=== PATIENT | male | born 1980 | race Caucasian/White ===

== ENCOUNTER → 2016-06-24 | Outpatient (CLI) | payer BC | LOC: M LAB 07:26 | PROVIDERS: ATTEND Family Medicine | DX: R53.83 Other fatigue (principal); F52.21 Male erectile disorder ==

== ENCOUNTER → 2017-02-03 | Outpatient (CLI) | payer BC ==
[2017-02-03 15:00] LABS: ALBUMIN 4.6 GM/DL (3.2-5.2); ALBUMIN/GLOBULIN RATIO 1.31 (1.00-1.93); ALKALINE PHOSPHATASE 72 U/L (45-117); ALT/SGPT 71 U/L (12-78); ANION GAP 9 MEQ/L (8-16); AST/SGOT 33 U/L (7-37); BILIRUBIN,TOTAL 0.6 MG/DL (0.2-1.0); BLOOD UREA NITROGEN 16 MG/DL (7-18); CALCIUM LEVEL 9.7 MG/DL (8.5-10.1); CARBON DIOXIDE LEVEL 29 MEQ/L (21-32); CHLORIDE LEVEL 101 MEQ/L (98-107); CHOLESTEROL LEVEL 427 MG/DL (<200); CREATININE FOR GFR 1.01 MG/DL (0.70-1.30); FREE T4 1.23 NG/DL (0.76-1.46); GLOMERULAR FILTRATION RATE > 60.0 (>60); GLUCOSE, FASTING 89 MG/DL (70-105); POTASSIUM SERUM 4.7 MEQ/L (3.5-5.1); SODIUM LEVEL 139 MEQ/L (136-145); TOTAL PROTEIN 8.1 GM/DL (6.4-8.2); TRIGLYCERIDES LEVEL 149 MG/DL (<150)
== END ==
LOC: M SMT 10:54
PROVIDERS: ATTEND Family Medicine
DX: E78.00 Pure hypercholesterolemia, unspecified (principal); E29.1 Testicular hypofunction

== ENCOUNTER → 2017-09-03 | Outpatient (CLI) | payer BC ==
[2017-09-03 10:05] LABS: CHOLESTEROL LEVEL 292 MG/DL (<200); CHOLESTEROL RISK RATIO 24.333 (<5); HDL CHOLESTEROL 12 MG/DL (>40); LDL CHOLESTEROL 249.8 MG/DL (<100); NON-HDL-C 280 MG/DL; TRIGLYCERIDES LEVEL 151 MG/DL (<150)
== END ==
LOC: M LAB 09:08
DX: E78.00 Pure hypercholesterolemia, unspecified (principal)
CPT/HCPCS: 80061

== ENCOUNTER → 2018-02-19 | Outpatient (CLI) | payer BC ==
[~2018-02-19] MED LIST: ALPR0.5T3 PO; DULO1CAP3 PO; ESZO1TAB5 PO; HYDRO50TAB PO; IMIP25TA3 PO; ROPI0.5T PO; ROSU40TA3 PO; TRAZO50TA PO; oxycodone PO
--- NOTE | 2018-02-19 16:02 | REP ---
Maxillofacial CT without contrast History: Chronic pansinusitis Comparison: 01/11/2018 Soft tissue density is present in the right maxillary sinus. There is a complete opacification of the right maxillary sinus. There is partial erosion of the right uncinate process. There is extension of soft tissue density to the right nasal passage. Moderate mucosal thickening is present in the right ethmoid and frontal sinuses. The remaining sinuses are clear. The middle and inferior nasal turbinates are partially paradoxical. There is minimal deviation of the nasal septum to the left. A spur is present arising from the left side of the nasal septum. The spur abuts the left inferior nasal turbinate. The cribriform plate , medial botello of the orbits and optic canals are intact. The carotid canals form a segment of the posterolateral botello of the sphenoid sinus. The sphenoid sinus septum inserts into the right internal carotid canal wall. Impression: There is complete opacification of the right maxillary sinus with partial erosion of the right uncinate process and extension into the right nasal passage. Moderate mucosal thickening is present in the right ethmoid and frontal sinuses. This may represent mucosal thickening or possibly an antrochoanal polyp. Electronically Signed by Harvey Mc MD 02/19/2018 03:54 P
== END ==
LOC: M RAD 15:17
PROVIDERS: ATTEND Otolaryngology
DX: J32.4 Chronic pansinusitis (principal)

== ENCOUNTER 2018-03-05 11:53 | Inpatient (IN) | payer BC ==
[~2018-03-05] VITALS: Ht 175.3 cm; Wt 78.2 kg
[2018-03-05 12:53] LABS: HEMATOCRIT 47.8 % (42.0-52.0); HEMOGLOBIN 16.8 g/dl (13.5-17.5); MEAN CORPUSCULAR HEMOGLOBIN 30.5 pg (27.0-33.0); MEAN CORPUSCULAR HGB CONC 35.1 g/dl (32.0-36.5); MEAN CORPUSCULAR VOLUME 86.8 fl (80.0-96.0); PLATELET COUNT, AUTOMATED 246 10^3/uL (150-450); RED BLOOD COUNT 5.51 10^6/uL (4.30-6.10); WHITE BLOOD COUNT 6.5 10^3/uL (4.0-10.0)
[2018-03-05] MEDS ORDERED: DULO1CAP3 PO (13:14)
[2018-03-05] MEDS ORDERED: ALPR0.5T3 PO (13:14)
[2018-03-05] MEDS ORDERED: oxycodone PO (13:14)
[2018-03-05] MEDS ORDERED: ROPI0.5T PO (13:14)
[2018-03-05] MEDS ORDERED: ROSU40TA3 PO (13:14)
[2018-03-05] MEDS ORDERED: ESZO1TAB5 PO (13:14)
[2018-03-05 13:23] LABS: AMPHETAMINES LEVEL URINE NEGATIVE (NEGATIVE); BARBITURATES URINE NEGATIVE (NEGATIVE); BENZODIAZEPINES URINE POSITIVE (NEGATIVE); CANNABINOIDS URINE NEGATIVE (NEGATIVE); COCAINE METABOLITE URINE NEGATIVE (NEGATIVE); METHADONE URINE NEGATIVE (NEGATIVE); OPIATES URINE NEGATIVE (NEGATIVE); PHENCYCLIDINE URINE NEGATIVE (NEGATIVE)
[2018-03-05 13:39] LABS: ACETAMINOPHEN LEVEL < 2.0 UG/ML (10.0-30.0); ALBUMIN 4.5 GM/DL (3.2-5.2); ALT/SGPT 31 U/L (12-78); BILIRUBIN,DIRECT 0.2 MG/DL (0.0-0.2); BILIRUBIN,TOTAL 0.7 MG/DL (0.2-1.0); BLOOD UREA NITROGEN 11 MG/DL (7-18); CALCIUM LEVEL 9.7 MG/DL (8.5-10.1); CARBON DIOXIDE LEVEL 26 MEQ/L (21-32); CHLORIDE LEVEL 104 MEQ/L (98-107); CREATININE FOR GFR 0.95 MG/DL (0.70-1.30); ETHYL ALCOHOL (ETHANOL) < 0.003 % (0.000-0.010); GLOMERULAR FILTRATION RATE > 60.0 (>60); GLUCOSE, FASTING 89 MG/DL (70-100); POTASSIUM SERUM 4.4 MEQ/L (3.5-5.1); SALICYLATE LEVEL < 1.7 MG/DL (5.0-30.0); SODIUM LEVEL 140 MEQ/L (136-145); THYROID STIMULATING HORMONE 0.427 uIU/ML (0.358-3.740); TOTAL PROTEIN 8.6 GM/DL (6.4-8.2)
[2018-03-05] MEDS ORDERED: ACETAMINOPHEN TAB 650MG DOSE (2X325MG) PO PRN (19:00)
[2018-03-05] MEDS ORDERED: MOM 30ML SUSPENSION UDC PO PRN (19:00)
[2018-03-05] MEDS ORDERED: MAALOX 30 ML SUSP *UDC PO PRN (19:00)
[2018-03-05 23:03] VITALS: BP 141/82
[2018-03-05] MEDS: ROSUVASTATIN 10 MG TAB (CRESTOR) PO SCH (23:55)
[2018-03-05] MEDS: rOPINIRole 0.25 MG TAB(REQUIP) PO SCH (23:56)
[2018-03-05] MEDS: traZODone 50 MG TAB PO PRN (23:57)
[2018-03-06 06:43] VITALS: BP 149/77
[2018-03-06] MEDS: DULoxetine 30 MG CAP (CYMBALTA) PO SCH (09:01)
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
[2018-03-06] MEDS: hydrOXYzine 25 MG TAB PO PRN (17:40)
[2018-03-06 18:00] VITALS: BP 131/77
[2018-03-06] MEDS: ROSUVASTATIN 10 MG TAB (CRESTOR) PO SCH (20:18)
[2018-03-06] MEDS: rOPINIRole 0.25 MG TAB(REQUIP) PO SCH (20:18)
[2018-03-06] MEDS ORDERED: IMIPRAMINE 25 MG TAB PO SCH (21:00)
[2018-03-06] MEDS: traZODone 50 MG TAB PO PRN (22:00)
[2018-03-07 06:44] VITALS: BP 130/61
[2018-03-07] MEDS: hydrOXYzine 25 MG TAB PO PRN (08:27)
[2018-03-07] MEDS: DULoxetine 30 MG CAP (CYMBALTA) PO SCH (08:28)
--- NOTE | 2018-03-07 10:34 | HPE ---
DATE OF ADMISSION: 03/05/2018 HISTORY OF THE PRESENT ILLNESS: Please refer to psychiatric history and evaluation for further details on this admission. This examination and history is intended for medical issues which may need treatment, follow-up or consult on this 37-year-old male. ALLERGIES: No known drug allergies. PRIMARY CARE PROVIDER: Dr. Begum SOCIAL HISTORY: He is . EtOH once a month. Smokes none. Recreational drug use none. PAST MEDICAL HISTORY: Hypercholesterolemia. Pansinusitis, is being scheduled for sinus surgery to be done by ENT, Dr. Morley. PAST SURGICAL HISTORY: Negative. HOME MEDICATIONS: - alprazolam 0.5 mg by mouth daily - eszopiclone 2 mg by mouth at bedtime - duloxetine 60 mg by mouth daily - ropinirole 0.5 mg by mouth at bedtime - rosuvastatin 40 mg by mouth at bedtime FAMILY HISTORY: Noncontributory. LABORATORY STUDIES: CBC was normal. Electrolytes normal. BUN 11, creatinine 0.95. Urine positive for benzodiazepines. REVIEW OF SYSTEMS: 11 systems review was unremarkable other than the pansinusitis and he is scheduled for surgery for this. Currently on no medications for it. PHYSICAL EXAMINATION: 37-year-old cooperative male in no acute distress. Height 69 inches, weight 76 kg, BMI 24.7. Temperature 98.2, pulse 66, respirations 16, blood pressure 131/77. The patient is alert and oriented times three. Pupils equal and react to light. Extraocular muscles intact. Cornea and sclerae are clear. Conjunctivae are normal. No facial asymmetry. Pharynx, tongue and gums are pink and moist. Tongue is midline. Neck is supple without lymphadenopathy. No thyromegaly. No goiter. Carotids are 2+ without bruit. Chest clear to auscultation without wheeze or retraction. Heart is regular. Abdomen is benign. Bowel sounds are positive. /rectal not done. Extremities show full range of motion. No cyanosis, clubbing or edema. Peripheral pulses are equal and palpable bilaterally. Skin is warm and dry. IMPRESSION/PLAN: 1. Psychiatric plan per psychiatry. 2. History of hypercholesterolemia. Continue rosuvastatin. 3. Pansinusitis. Continued follow-up and as scheduled for surgery with Dr. Morley. No other acute medical issues.
--- NOTE | 2018-03-07 11:07 | MHIPNPDOC ---
[facility] Progress Note Progress Note DATE OF SERVICE: 03/07/18 HISTORY: Patient is a 37 -year-old , male, with no previous psych history who was admitted after he was sent by his PCP, Dr. Fung, for complaints of depression and intrusive thoughts. Per ED, pt was not very forth coming at first with info. In ED, he endorsed "intrusive thoughts" of "visions hurting himself of his son", driving truck off the road and into a ditch or water or pushing his 16mo old son down stairs or smothering him with a pillow. Pt admitted that these thoughts caused him to feel depressed and anxious. Pt s tated that his PCP had prescribed him cymbalta in the past that he took for 2wks for depression but stopped taking on his own b/c he felt it didn't work. Pt in the ED admitted he had felt good during the holidays but after the holidays he started feeling worthless and depressed. Pt seen and endorses continuous worrisome thoughts that cause anxiety and insomnia. States he was doing good during the holidays and made a resolution to be a good and father which last for 2 days after New Years but states then he started feeling guilty for looking at women on line with webcams that now has made him feel worthless and guilty. Pt states that his guilt regarding how he had treated his caused him to have spontaneous intrusive thoughts of at first harming himself and then later others (son, best friend) that made him anxious, scared him, and denies he wants to harm himself or others. Pt denies ritual behavior or checking. Talking to pt about what SHREYAS and OCD are and that prozac or imipramine good med treatment for disorders well tolerated. Pt agrees to try imipramine for anxiety, OCD, and insomnia. Denies si/hi, hallucinations, delusions. Feels safe here. VITAL SIGNS: See below. NEW TEST RESULTS: See below. CURRENT MEDICATIONS: See below. MENTAL STATUS EXAMINATION: General Appearance: well groomed, appears stated age, hospital scubs/clothing Build: average Demeanor: average Eye Contact: average Activity: average, anxious Behavior: cooperative Speech: clear, spontaneous, normal volume, reg/rate,rhythm,volume Mood: depressed, anxious Mood worthless Affect: constricted, flat, congruent, anxious Thought Process: logical/linear, depressed, intact, other (intrusive thoughts) Thought Content (Delusions): none reported, denies SI, HI, AVH Thought Content (Other): none reported, preoccupied (sexual thoughts that he doesn't act on and make him feel guilt physically, cause anxiety if doesn't look at webcam/follow pretty girl in a store, ODC like ritual), obsessional, other (OCD intrusive thoughts) Thought Content (Aggressive): none reported Perception (Hallucinations): none reported Perception (Other): none reported Cognition (Impairment of): none reported Cognition(Intelligence Est.): average Oriented: Awake, Alert, Oriented times three Insight: fair Judgment: Fair Psychosis: Denies DIAGNOSES: SHREYAS OCD depression unspecified ASSESSMENT:Pt seen and endorses continuous intrusive thoughts of pushing his son down the stairs that causes anxiety b/c he doesn't want to do that and knows he wouldn't. Pt encouraged to combat intrusive thoughts with thoughts of loving his son and his son loving him, logical thoughts of knowing he would never do anything like that. States he's tolerating his medication and waiting to notices mood/anxiety response that's beneficial. Agreeable to increase of both for improved benefit. He's attending groups and finding them beneficial. Denies si/hi, hallucinations, delusions. Feels safe here. MANAGEMENT PLAN: continue current plan. Medications: imipramine 50mg qhs atarax 50mg q6hr prn anxiety TIME SPENT: 30 minutes. Vital Signs Vital Signs Date Time Temp Pulse Resp B/P (MAP) Pulse Ox O2 Delivery O2 Flow Rate FiO2 03/07/18 06:44 97.8 68 14 130/61 (84) 03/05/18 23:03 Room Air 03/05/18 16:37 96 Current Medications Current Medications Acetaminophen (Tylenol Tab) 650 mg Q6HP PRN PO HEADACHE or DISCOMFORT; Start 03/05/18 at 19:00 Al Hydrox/Mg Hydrox/Simethicone (Mylanta) 30 ml Q4HP PRN PO HEARTB URN/INDIGESTION; Start 03/05/18 at 19:00 Duloxetine HCl (Cymbalta) 60 mg DAILY PO Last administered on 03/06/18at 09:01; Start 03/06/18 at 09:00 Home Med (Med Rec Complete!) ASDIRECTED XX ; Start 03/05/18 at 19:45; Stop 03/05/18 at 19:45; Status DC Hydroxyzine HCl (Atarax) 25 mg Q6HP PRN PO ANXIETY Last administered on 03/07/18 08:27; Start 03/05/18 at 23:45 Imipramine HCl (Tofranil) 25 mg QHS PO Last administered on 03/06/18at 20:18; Start 03/06/18 at 21:00 Magnesium Hydroxide (Milk Of Magnesia) 30 ml DAILYPRN PRN PO CONSTIPATION; Start 03/05/18 at 19:00 Ropinirole HCl (Requip) 0.5 mg QHS PO Last administered on 03/06/18at 20:18; Start 03/05/18 at 21:00 Rosuvastatin Calcium (Crestor) 40 mg QHS PO Last administered on 03/06/18 20:18; Start 03/05/18 at 21:00 Trazodone HCl (Desyrel) 50 mg QHSP PRN PO INSOMNIA Last administered on 03/06/18 22:00; Start 03/05/18 at 19:00 Allergies Coded Allergies: No Known Drug Allergy (Verified Allergy, Unknown, 03/05/18) JENNY ROTHMAN DO Mar 07, 2018 11:07
[2018-03-07] MEDS: hydrOXYzine 50 MG TAB PO PRN (15:10)
[2018-03-07 18:00] VITALS: BP 139/65
[2018-03-07] MEDS: rOPINIRole 0.25 MG TAB(REQUIP) PO SCH (20:44)
[2018-03-07] MEDS: ROSUVASTATIN 10 MG TAB (CRESTOR) PO SCH (20:44)
[2018-03-07] MEDS: IMIPRAMINE 25 MG TAB PO SCH (20:44)
[2018-03-07] MEDS ORDERED: IMIPRAMINE 50 MG TAB PO SCH (21:00)
[2018-03-07] MEDS: traZODone 50 MG TAB PO PRN (21:51)
[2018-03-08 06:43] VITALS: BP 133/62
[2018-03-08 10:00] VITALS: BP 133/62
--- NOTE | 2018-03-08 11:50 | MHIPNPDOC ---
[facility] [place] Progress Note DATE OF SERVICE: 03/08/18 HISTORY: Patient is a 37 -year-old , male, with no previous psych history who was admitted after he was sent by his PCP, Dr. Fung, for complaints of depression and intrusive thoughts. Per ED, pt was not very forth coming at first with info. In ED, he endorsed "intrusive thoughts" of "visions hurting himself of his son", driving truck off the road and into a ditch or water or pushing his 16mo old son down stairs or smothering him with a pillow. Pt admitted that these thoughts caused him to feel depressed and anxious. Pt s tated that his PCP had prescribed him cymbalta in the past that he took for 2wks for depression but stopped taking on his own b/c he felt it didn't work. Pt in the ED admitted he had felt good during the holidays but after the holidays he started feeling worthless and depressed. Pt seen and endorses continuous worrisome thoughts that cause anxiety and insomnia. States he was doing good during the holidays and made a resolution to be a good and father which last for 2 days after New Years but states then he started feeling guilty for looking at women on line with webcams that now has made him feel worthless and guilty. Pt states that his guilt regarding how he had treated his caused him to have spontaneous intrusive thoughts of at first harming himself and then later others (son, best friend) that made him anxious, scared him, and denies he wants to harm himself or others. Pt denies ritual behavior or checking. Talking to pt about what SHREYAS and OCD are and that prozac or imipramine good med treatment for disorders well tolerated. Pt agrees to try imipramine for anxiety, OCD, and insomnia. Denies si/hi, hallucinations, delusions. Feels safe here. VITAL SIGNS: See below. NEW TEST RESULTS: See below. CURRENT MEDICATIONS: See below. MENTAL STATUS EXAMINATION: General Appearance: well groomed, appears stated age, own clothing Build: average Demeanor: average, cooperative, pleasant Eye Contact: average Activity: average, less anxious Behavior: cooperative Speech: clear, spontaneous, normal volume, reg/rate,rhythm,volume Mood: less depressed and anxious Mood "better" Affect: improved range, congruent, less anxious Thought Process: logical/linear, less depressed, intact, improved intrusive thoughts Thought Content (Delusions): none reported, denies SI, HI, AVH Thought Content (Other): none reported, improved intrusive thoughts and OCD urges Thought Content (Aggressive): none reported Perception (Hallucinations): none reported Perception (Other): none reported Cognition (Impairment of): none reported Cognition(Intelligence Est.): average Oriented: Awake, Alert, Oriented times three Insight: fair Judgment: Fair Psychosis: Denies DIAGNOSES: SHREYAS OCD depression unspecified ASSESSMENT:Pt seen and endorses great improvement in intrusive thoughts he feels they are more easy to stop so no longer causing extreme anxiety. States he's also using positive thought and deep breathing therapeutically to improve intrusive thoughts and anxiety which are both working. Pt more easily able to combat intrusive thoughts with thoughts of loving his son and his son loving him, logical thoughts of knowing he would never do anything like that. States he's tolerating his medication and feels the increase in imipramine is greatly beneficial as he finds that his anxiety is greatly improved to the point he hasn't needed any atarax since yesterday morning. He's attending groups and finding them beneficial. Denies si/hi, hallucinations, delusions. Depression, anxiety, OCD symptoms are improving with treatment. Feels safe here. MANAGEMENT PLAN: continue current plan. Medications: imipramine 50mg qhs atarax 50mg q6hr prn anxiety TIME SPENT: 30 minutes. Vital Signs Vital Signs Date Time Temp Pulse Resp B/P (MAP) Pulse Ox O2 Delivery O2 Flow Rate FiO2 03/08/18 06:43 97.7 67 16 133/62 (85) 03/05/18 23:03 Room Air 03/05/18 16:37 96 Current Medications Current Medications Acetaminophen (Tylenol Tab) 650 mg Q6HP PRN PO HEADACHE or DISCOMFORT; Start 03/05/18 at 19:00 Al Hydrox/Mg Hydrox/Simethicone (Mylanta) 30 ml Q4HP PRN PO HEARTBURN/REED GESTION; Start 03/05/18 at 19:00 Duloxetine HCl (Cymbalta) 60 mg DAILY PO Last administered on 03/06/18at 09:01; Start 03/06/18 at 09:00; Stop 03/07/18 at 21:13; Status DC Home Med (Med Rec Complete!) ASDIRECTED XX ; Start 03/05/18 at 19:45; Stop 03/05/18 at 19:45; Status DC Hydroxyzine HCl (Atarax) 25 mg Q6HP PRN PO ANXIETY Last administered on 03/07/18at 08:27; Start 03/05/18 at 23:45; Stop 03/07/18 at 11:08; Status DC Hydroxyzine HCl (Atarax) 50 mg Q6HP PRN PO ANXIETY/AGITATION Last administered on 03/07/18at 15:10; Start 03/07/18 at 11:15 Imipramine HCl (Tofranil) 25 mg QHS PO Last administered on 03/06/18at 20:18; Start 03/06/18 at 21:00; Stop 03/07/18 at 11:08; Status DC Imipramine HCl (Tofranil) 50 mg QHS PO ; Start 03/07/18 at 21:00; Stop 03/07/18 at 21:00; Status DC Imipramine HCl (Tofranil) 50 mg QHS PO Last administered on 03/07/18at 20:44; Start 03/07/18 at 21:00 Magnesium Hydroxide (Milk Of Magnesia) 30 ml DAILYPRN PRN PO CONSTIPATION; Start 03/05/18 at 19:00 Ropinirole HCl (Requip) 0.5 mg QHS PO Last administered on 03/07/18at 20:44; Start 03/05/18 at 21:00 Rosuvastatin Calcium (Crestor) 40 mg QHS PO Last administered on 03/07/18at 20: 44; Start 03/05/18 at 21:00 Trazodone HCl (Desyrel) 50 mg QHSP PRN PO INSOMNIA Last administered on 03/07/18 21:51; Start 03/05/18 at 19:00 Allergies Coded Allergies: No Known Drug Allergy (Verified Allergy, Unknown, 03/05/18) JENNY ROTHMAN DO Mar 08, 2018 11:50 am
[2018-03-08] MEDS: hydrOXYzine 50 MG TAB PO PRN (15:04)
[2018-03-08 18:00] VITALS: BP 130/80
[2018-03-08] MEDS: traZODone 50 MG TAB PO PRN (22:04)
[2018-03-08] MEDS: rOPINIRole 0.25 MG TAB(REQUIP) PO SCH (22:04)
[2018-03-08] MEDS: ROSUVASTATIN 10 MG TAB (CRESTOR) PO SCH (22:04)
[2018-03-08] MEDS: IMIPRAMINE 25 MG TAB PO SCH (22:05)
[2018-03-09 06:32] VITALS: BP 122/84
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
[2018-03-09] MEDS ORDERED: TRAZO50TA PO (09:06)
[2018-03-09] MEDS ORDERED: HYDRO50TAB PO (09:06)
[2018-03-09] MEDS ORDERED: IMIP25TA3 PO (09:06)
[2018-03-09] MEDS: hydrOXYzine 50 MG TAB PO PRN (09:30)
== END 2018-03-09 12:10 | disposition home or self-care (01) | DRG 756 ==
LOC: M ED 11:53 → M ED INP 18:46 → M PSY 22:21
PROVIDERS: ADMIT Psychiatry & Neurology Psychiatry; ATTEND Psychiatry & Neurology Psychiatry
DX: F41.1 Generalized anxiety disorder (principal); F32.9 Major depressive disorder, single episode, unspecified; F42.9 Obsessive-compulsive disorder, unspecified; Z79.899 Other long term (current) drug therapy; J32.9 Chronic sinusitis, unspecified

== ENCOUNTER 2018-04-14 20:30 | Day surgery (SDC) | payer BC ==
[~2018-04-14] VITALS: Ht 175.3 cm; Wt 77.3 kg
[2018-04-14] MEDS ORDERED: CLON0.5T8 (20:39)
[2018-04-14] MEDS ORDERED: LORazepam 2 MG/ML VIAL (J2060) IV STA ×2 (22:05→23:25)
[2018-04-14] MEDS ORDERED: LIDOCAINE 4% TOPICAL SOLN 50 ML BTL TOP ONE (22:15)
[2018-04-14] MEDS ORDERED: OXYMETAZOLINE NASAL SPRAY (AFRIN) ONE (22:15)
[2018-04-14 22:26] LABS: MEAN CORPUSCULAR HEMOGLOBIN 30.2 pg (27.0-33.0); MEAN CORPUSCULAR HGB CONC 34.9 g/dl (32.0-36.5); MEAN CORPUSCULAR VOLUME 86.7 fl (80.0-96.0); PLATELET COUNT, AUTOMATED 249 10^3/uL (150-450); RED BLOOD COUNT 4.96 10^6/uL (4.30-6.10); WHITE BLOOD COUNT 11.7 10^3/uL (4.0-10.0)
[2018-04-14] MEDS ORDERED: ONDANSETRON 4MG/2ML VIAL (J2405) As Ordered ONE (22:36)
[2018-04-14] MEDS ORDERED: ONDANSETRON 4MG/2ML VIAL (J2405) IV ONE (22:45)
[2018-04-14] MEDS ORDERED: NS 1,000 ML IV ONE (22:45)
[2018-04-15] MEDS ORDERED: IMIP25TA3 PO (00:06)
[2018-04-15] MEDS ORDERED: TRAZ-163 PO (00:06)
[2018-04-15] MEDS ORDERED: CLON0.5T8 PO (00:06)
[2018-04-15 01:22] LABS: HEMATOCRIT 36.4 % (42.0-52.0); MEAN CORPUSCULAR HEMOGLOBIN 30.2 pg (27.0-33.0); MEAN CORPUSCULAR HGB CONC 34.1 g/dl (32.0-36.5); MEAN CORPUSCULAR VOLUME 88.6 fl (80.0-96.0); PLATELET COUNT, AUTOMATED 233 10^3/uL (150-450); RED BLOOD COUNT 4.11 10^6/uL (4.30-6.10); WHITE BLOOD COUNT 11.6 10^3/uL (4.0-10.0)
[2018-04-15 01:25] LABS: HEMOGLOBIN 12.4 g/dl (13.5-17.5)
[2018-04-15 01:32] LABS: INR 1.12; PROTHROMBIN TIME 14.6 SECONDS (12.1-14.4)
[2018-04-15 01:52] LABS: ALBUMIN 3.3 GM/DL (3.2-5.2); ALT/SGPT 32 U/L (12-78); BILIRUBIN,TOTAL 0.2 MG/DL (0.2-1.0); BLOOD UREA NITROGEN 11 MG/DL (7-18); CALCIUM LEVEL 7.5 MG/DL (8.5-10.1); CARBON DIOXIDE LEVEL 24 MEQ/L (21-32); CHLORIDE LEVEL 108 MEQ/L (98-107); CREATININE FOR GFR 0.87 MG/DL (0.70-1.30); GLOMERULAR FILTRATION RATE > 60.0 (>60); GLUCOSE, FASTING 111 MG/DL (70-100); POTASSIUM SERUM 4.5 MEQ/L (3.5-5.1); SODIUM LEVEL 141 MEQ/L (136-145); TOTAL PROTEIN 6.3 GM/DL (6.4-8.2)
[2018-04-15] MEDS ORDERED: OXYMETAZOLINE NASAL SPRAY (AFRIN) As Ordered ONE ×3 (01:57→02:47)
[2018-04-15] MEDS ORDERED: LIDOCAINE 2% INJ 100 MG/5 ML SDV (FOR ANES.) As Ordered ONE (02:16)
[2018-04-15] MEDS ORDERED: SUCCINYLCHOLINE 100 MG/5 ML SYRINGE (J0330) As Ordered ONE (02:16)
[2018-04-15] MEDS ORDERED: ROCURONIUM BROMIDE 50 MG/5 ML VIAL As Ordered ONE (02:16)
[2018-04-15] MEDS ORDERED: fentaNYL 250 MCG/5 ML INJECTION (J3010) As Ordered ONE (02:16)
[2018-04-15] MEDS ORDERED: ONDANSETRON 4MG/2ML VIAL (J2405) As Ordered ONE (02:16)
[2018-04-15] MEDS ORDERED: PROPOFOL 200 MG/20 ML VIAL As Ordered ONE (02:16)
[2018-04-15] MEDS ORDERED: MIDAZOLAM INJ 5 MG/ML VIAL (J2250) As Ordered ONE (02:17)
[2018-04-15] MEDS ORDERED: dexameTHASONE 4 MG/ML 1ML VIAL (J1100) As Ordered ONE (03:01)
[2018-04-15] MEDS ORDERED: SUGAMMADEX SODIUM 500 MG/5 ML VIAL (BRIDION) As Ordered ONE (03:01)
[2018-04-15] MEDS ORDERED: BACITRACIN OINT 30GM As Ordered ONE (03:28)
[2018-04-15] MEDS ORDERED: ceFAZolin 1GM INJ (J0690 PER 500MG) As Ordered ONE (04:03)
[2018-04-15] MEDS ORDERED: LR 1,000 ML IV SCH (04:45)
[2018-04-15] MEDS ORDERED: ONDANSETRON 4MG/2ML VIAL (J2405) IV PRN (04:45)
[2018-04-15] MEDS ORDERED: MORPHINE 10 MG/ML 1ML VIAL (J2270) IV PRN (04:45)
[2018-04-15] MEDS ORDERED: fentaNYL 100 MCG/2 ML INJECTION (J3010) IV PRN (04:45)
[2018-04-15] MEDS ORDERED: METOCLOPRAMIDE INJ 10MG/2ML VIAL (J2765) IV PRN (04:45)
[2018-04-15] MEDS ORDERED: ceFAZolin SOD 1 GM in D5W MINI-BAG PLUS 50 ML IV ONE (04:45)
[2018-04-15 05:15] VITALS: BP 126/87
[2018-04-15 05:45] VITALS: BP 130/86
[2018-04-15 06:45] VITALS: BP 149/93
[2018-04-15 06:52] LABS: HEMATOCRIT 32.6 % (42.0-52.0); HEMOGLOBIN 11.3 g/dl (13.5-17.5)
[2018-04-15 07:45] VITALS: BP 128/75
[2018-04-15 08:45] VITALS: BP 145/70
[2018-04-15 09:45] VITALS: BP 136/75
--- NOTE | 2018-04-17 21:09 | CR ---
DATE OF CONSULTATION: 04/15/2018 REQUESTING PHYSICIAN: Dr. Helm, emergency room (ER) physician. REASON FOR CONSULTATION: Epistaxis. HISTORY OF PRESENT ILLNESS: This anxious 38-year-old gentleman apparently had surgery approximately 2-3 weeks ago down in [place], and initially he thought maybe he just had his septum, and it was only the right side clear. He is not a very clear historian with regard to what type of surgery was done. He according to his did have what she thought was excessive bleeding. Had called the ears, nose, and throat (ENT) office a few times and was told that the amount of bleeding was normal. There was no packing that was placed; however, today when the was not at home, he apparently was playing football. Did not hit his nose, by report, and suffered significant bleeding out of both sides. He is unable to say which side it started from and was very brisk. His did come home and then did see it. Apparently, the patient has a history of generalized anxiety. Had been previously hospitalized in March for depression as well and also had been seen by psychiatric service as an outpatient for his issues, and he is feeling anxious today. Otherwise, he reports no other significant issues. He has been given Ativan because of his anxiety, and he is requesting more even though he has been given two doses. He is unable to give any inform consent, but he did seem to have some control of his bleeding with pinching of the nostrils and the blood clot that was starting to form. He denies any recent trauma to his nose except for the recent surgery and playing football, although his does believe that he has been bleeding a fair amount since after the operation. PAST MEDICAL HISTORY: Again, significant for general anxiety disorder and also had been hospitalized for depression, and he also has hypercholesterolemia. PAST SURGICAL HISTORY: Includes the recent sinus surgery, and apparently there was some issue with an ankle. Not really clear if he had surgery on it or not. REVIEW OF SYSTEMS: Otherwise, except for the above-mentioned is unremarkable. He has had chest pain associated with generalized anxiety but no cardiac issues. PHYSICAL EXAMINATION: Anxious individual in the critical room with some bleeding of the nose with some packing and clots in the nasal cavity but some bleeding and the nurse pinching his nose with gauze. The pinnae are within normal limits. External canals are within normal limits. There is blood behind both eardrums present. There is bleeding coming from both nasal cavities. Attempts initially were used to place Afrin as well as topical 4% lidocaine in the nasal cavity. Garcia suctions were used to try and remove the bleeding as well as the blood clots. Afrin was then used. It was somewhat difficult to see, as the patient was not very cooperative and very anxious. The patient did require another dose given by the ER physician of [place]. Eventually the blood clot was removed. There was mild oozing. There was no obvious anterior bleeding that could be seen. Nasopore packing was placed in the nasal cavity on both sides after topical 4% lidocaine and Afrin were placed. It seemed initially the patient was controlled then developed severe bleeding after having another anxiety attack. Blood pressure kept going up and down as his anxiety levels changed and had gotten up to 178/88 and then another time was 160/129 but then would come back down after we could get him to calm down temporarily. As he had more increase in his anxiety, he had breakthrough bleeding. Initially Nasopore packing had controlled the bleeding. There was no bleeding in the posterior oropharynx. As we were getting ready to leave and discussing the issues with his , he started to become more anxious, starting having some bleeding coming from the nasal cavity through the packing but not brisk, but it was on both sides, not one more than the other, and then a little bit on the posterior oropharynx as well. At this point, it was felt given the patient's anxiety and his continued recurrent bleeding, it is best to take him to the operating room to try and examine, control, cauterize, and repacked as necessary. We have none of the operative records available to us. Hemoglobin was 15, hematocrit was 43, platelet count was 249. He did have an ethyl alcohol level of 0.04. IMPRESSION/PLAN: Patient with generalized anxiety disorder, previous relatively recent sinus surgery with severe epistaxis, uncontrollable with conventional packing. Previous ER physician had placed Rhino Rockets, and then he had more bleeding afterward, and this is the case now. The plan at this point is to take him to the operating room to try and control the bleeding, find the source, and possibly cauterize it and probably requires repacking under general anesthesia. We talked about the risk of the bleeding, possible need for blood transfusions. Also risk of septal perforations and risk of . At this point, because the patient has received anxiolytic medicines, he is not capable of signing consent, and his did talk with him and has signed the consent. At this point we are waiting for the operating room (OR) to be ready, as they are currently operating on another patient at this time. All questions were answered. We did also given him the option to consider going back to their surgeon down in [place], who knows what he had done. At this point they prefer to stay here. CECELIA
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
== END 2018-04-15 11:38 | disposition home or self-care (01) ==
LOC: M ED 20:30 → M SDC 20:31 → M PED 04-15 05:05 → M SDC 04-15 05:05 → M PED 04-15 11:38 → M SDC 04-15 11:38
PROVIDERS: ATTEND Otolaryngology
DX: R04.0 Epistaxis (principal); F32.9 Major depressive disorder, single episode, unspecified; F41.9 Anxiety disorder, unspecified; Z79.899 Other long term (current) drug therapy
CPT/HCPCS: 31238; 36415; 80053; 85014; 85018; 85027; 85610; 86850; 86900; 86901; 96374; 96375; 96376; 99291; G0480; J0330; J0690; J1100; J2060; J2250; J2405; J3010

== ENCOUNTER 2018-04-17 21:05 | Emergency (ER) | payer BC ==
[~2018-04-17] VITALS: Ht 175.3 cm; Wt 77.3 kg
[~2018-04-17 21:05] MED LIST changes: +CLON0.5T8; +CLON0.5T8 PO; +TRAZ-163 PO
[2018-04-17 22:14] LABS: HEMATOCRIT 32.8 % (42.0-52.0); HEMOGLOBIN 10.9 g/dl (13.5-17.5); MEAN CORPUSCULAR HEMOGLOBIN 29.9 pg (27.0-33.0); MEAN CORPUSCULAR HGB CONC 33.2 g/dl (32.0-36.5); MEAN CORPUSCULAR VOLUME 89.9 fl (80.0-96.0); PLATELET COUNT, AUTOMATED 272 10^3/uL (150-450); RED BLOOD COUNT 3.65 10^6/uL (4.30-6.10); WHITE BLOOD COUNT 5.9 10^3/uL (4.0-10.0)
[2018-04-17 22:17] LABS: INR 0.98; PROTHROMBIN TIME 13.1 SECONDS (12.1-14.4)
[2018-04-17 22:18] LABS: PARTIAL THROMBOPLASTIN TIME 25.4 SECONDS (25.4-37.6)
[2018-04-17 22:22] LABS: BLOOD UREA NITROGEN 13 MG/DL (7-18); CALCIUM LEVEL 8.7 MG/DL (8.5-10.1); CARBON DIOXIDE LEVEL 30 MEQ/L (21-32); CHLORIDE LEVEL 103 MEQ/L (98-107); CREATININE FOR GFR 1.05 MG/DL (0.70-1.30); GLOMERULAR FILTRATION RATE > 60.0 (>60); GLUCOSE, FASTING 104 MG/DL (70-100); POTASSIUM SERUM 4.2 MEQ/L (3.5-5.1); SODIUM LEVEL 140 MEQ/L (136-145)
[2018-04-17] MEDS ORDERED: LORazepam 2 MG/ML VIAL (J2060) IV STA (22:24)
[2018-04-17] MEDS ORDERED: ISOVUE-370 76% 100ML VIAL (Q9967) As Ordered ONE (22:33)
--- NOTE | 2018-04-18 00:38 | REPVR ---
EXAM: CT Neck With Contrast EXAM DATE/TIME: 04/17/2018 10:37 PM CLINICAL HISTORY: 38 years old, male; Signs and symptoms; Other: Epistaxis; Prior surgery; Surgery date: 3-7 days post-operative; Surgery type: Sinus surgery last week TECHNIQUE: Axial computed tomography images of the neck with intravenous contrast. All CT scans at this facility use at least one of these dose optimization techniques: automated exposure control; mA and/or kV adjustment per patient size (includes targeted exams where dose is matched to clinical indication); or iterative reconstruction. Coronal and sagittal reformatted images were created and reviewed. CONTRAST: 75 ml of ISOVUE 370 administered intravenously. COMPARISON: No relevant prior studies available. FINDINGS: Sinuses: Status post maxillary sinus surgery. Moderate right frontal hemorrhagic fluid. Right maxillary sinus surgery with large hemorrhagic fluid and air. Large hemorrhagic fluid and air in the left maxillary sinus. Nasopharynx: Large amount of air, hyperdense fluid and secretions in the distended nasopharynx may represent hemorrhage with possible suggestion of packing material, clinical correlation is recommended. Oropharynx: Normal. No significant tonsillar enlargement. Larynx: Normal. Normal epiglottis. Submandibular/Parotid glands: Normal. Glands are normal in size. Thyroid: Normal. No enlarged or calcified nodules. Lymph nodes: Normal. No lymphadenopathy. Lungs: Normal as visualized. Vasculature: No acute findings. Bones/joints: Normal. No acute fracture. Soft tissues: Moderate soft tissue swelling with foci of air in the premaxillary region likely related to surgery. IMPRESSION: Large amount of air, hyperdense fluid and secretions in the distended nasopharynx may represent hemorrhage with possible suggestion of packing material, clinical correlation is recommended. Moderate right frontal hemorrhagic fluid. Complete opacification of the right ethmoidal air cells. Moderate hemorrhage is noted in the left ethmoidal air cells. Moderate hemorrhage is noted in bilateral sphenoid sinuses. Complete opacification of the right ethmoidal air cells. Moderate hemorrhage is noted in the left ethmoidal air cells. Moderate hemorrhage is noted in bilateral sphenoid sinuses. Large amount of air, hyperdense fluid and secretions in the distended nasopharynx may represent hemorrhage with possible suggestion of packing material, clinical correlation is recommended. Moderate soft tissue swelling with foci of air in the premaxillary region likely related to surgery. Electronically signed by: Elisa White On 04/18/2018 00:37:57 AM
[2018-04-18 01:53] VITALS: BP 136/76
== END 2018-04-18 01:54 | disposition home or self-care (01) ==
LOC: M ED 21:05
DX: R04.0 Epistaxis (principal)
CPT/HCPCS: 70491; 80048; 85027; 85610; 85730; 96374; 99283; J2060; Q9967

== ENCOUNTER → 2018-10-11 | Outpatient (CLI) | payer BC ==
[~2018-10-11] MED LIST changes: +CLON0.5T2; +CLON0.5T2 PO; -CLON0.5T8; -CLON0.5T8 PO; -DULO1CAP3 PO; +DULO1CAP6 PO; +HYDR1TAB33 PO; -HYDRO50TAB PO; -ROSU40TA3 PO; +ROSU40TA4 PO; -TRAZ-163 PO; +TRAZ-257 PO; +TRAZ1TAB10 PO; -TRAZO50TA PO
[2018-10-11 20:14] LABS: BASO % 0.8 % (0.0-1.0); EOS # 0.1 10^3/uL (0.0-0.50); EOS % 1.2 % (0.0-3.0); HEMATOCRIT 41.6 % (42.0-52.0); LYMPH # 2.1 10^3/uL (1.5-4.5); LYMPH % 40.4 % (24.0-44.0); MEAN CORPUSCULAR HEMOGLOBIN 23.7 pg (27.0-33.0); MEAN CORPUSCULAR HGB CONC 31.3 g/dl (32.0-36.5); MEAN CORPUSCULAR VOLUME 75.8 fl (80.0-96.0); MONO # 0.4 10^3/uL (0.0-0.8); MONO % 7.9 % (0.0-5.0); NEUTROPHILS # 2.6 10^3/uL (1.8-7.7); NEUTROPHILS % 49.5 % (36.0-66.0); PLATELET COUNT, AUTOMATED 224 10^3/uL (150-450); RED BLOOD COUNT 5.49 10^6/uL (4.30-6.10); WHITE BLOOD COUNT 5.2 10^3/uL (4.0-10.0)
[2018-10-11 20:44] LABS: ALT/SGPT 33 U/L (12-78); BILIRUBIN,TOTAL 0.4 MG/DL (0.2-1.0); BLOOD UREA NITROGEN 10 MG/DL (7-18); CALCIUM LEVEL 9.2 MG/DL (8.5-10.1); CARBON DIOXIDE LEVEL 30 MEQ/L (21-32); CHLORIDE LEVEL 104 MEQ/L (98-107); CPK CREATINE PHOSPHOKINASE 215 U/L (39-308); CREATININE FOR GFR 1.14 MG/DL (0.70-1.30); GLOMERULAR FILTRATION RATE > 60.0 (>60); GLUCOSE, FASTING 86 MG/DL (70-100); MAGNESIUM LEVEL 2.1 MG/DL (1.8-2.4); POTASSIUM SERUM 4.1 MEQ/L (3.5-5.1); SODIUM LEVEL 139 MEQ/L (136-145); TOTAL PROTEIN 7.5 GM/DL (6.4-8.2); VITAMIN B12 LEVEL 459 PG/ML (247-911)
[2018-10-11 20:45] LABS: FOLATE 13.8 NG/ML (>5.4)
== END ==
LOC: M LAB 19:44
PROVIDERS: ATTEND Family Medicine
DX: G25.81 Restless legs syndrome (principal)

== ENCOUNTER → 2018-12-20 | Outpatient (CLI) | payer BC ==
[~2018-12-20] MED LIST changes: -CLON0.5T2; -CLON0.5T2 PO; +CLON0.5T8; +CLON0.5T8 PO; +TRAZ-163 PO; -TRAZ-257 PO
[2018-12-20 18:25] LABS: BASO # 0.1 10^3/uL (0.0-0.2); EOS # 0.1 10^3/uL (0.0-0.5); HEMATOCRIT 43.6 % (42.0-52.0); HEMOGLOBIN 14.7 g/dl (13.5-17.5); LYMPH # 1.5 10^3/uL (1.5-5.0); LYMPH % 30.8 % (24.0-44.0); MEAN CORPUSCULAR HEMOGLOBIN 27.7 pg (27.0-33.0); MEAN CORPUSCULAR HGB CONC 33.7 g/dl (32.0-36.5); MEAN CORPUSCULAR VOLUME 82.3 fl (80.0-96.0); MONO # 0.5 10^3/uL (0.0-0.8); MONO % 9.6 % (0.0-5.0); NEUTROPHILS # 2.7 10^3/uL (1.5-8.5); NEUTROPHILS % 57.2 % (36.0-66.0); PLATELET COUNT, AUTOMATED 189 10^3/uL (150-450); WHITE BLOOD COUNT 4.8 10^3/uL (4.0-10.0)
[2018-12-20 19:02] LABS: PERCENT SATURATION 32.3 % (19.7-50.0)
[2018-12-20 19:08] LABS: FOLATE 14.1 NG/ML (>5.4)
== END ==
LOC: M LAB 17:32
PROVIDERS: ATTEND Physician Assistant
DX: D50.9 Iron deficiency anemia, unspecified (principal)

== ENCOUNTER → 2019-05-13 | Outpatient (CLI) | payer BC ==
[~2019-05-13] MED LIST changes: +CLON0.5T2; +CLON0.5T2 PO; -CLON0.5T8; -CLON0.5T8 PO; -ROPI0.5T PO; +ROPI0.5T3 PO; -TRAZ-163 PO; +TRAZ-257 PO
[2019-05-13 09:08] LABS: HEMATOCRIT 47.6 % (42.0-52.0); HEMOGLOBIN 16.2 g/dl (13.5-17.5); MEAN CORPUSCULAR HEMOGLOBIN 30.1 pg (27.0-33.0); MEAN CORPUSCULAR VOLUME 88.3 fl (80.0-96.0); RED BLOOD COUNT 5.39 10^6/uL (4.30-6.10); WHITE BLOOD COUNT 5.5 10^3/uL (4.0-10.0)
[2019-05-13 09:09] LABS: BASO # 0.1 10^3/uL (0.0-0.2); BASO % 1.1 % (0.0-1.0); EOS # 0.1 10^3/uL (0.0-0.5); EOS % 0.9 % (0.0-3.0); LYMPH # 1.4 10^3/uL (1.5-5.0); LYMPH % 24.6 % (24.0-44.0); MONO # 0.5 10^3/uL (0.0-0.8); MONO % 9.6 % (0.0-5.0); NEUTROPHILS # 3.5 10^3/uL (1.5-8.5); NEUTROPHILS % 63.4 % (36.0-66.0); PLATELET COUNT, AUTOMATED 192 10^3/uL (150-450)
[2019-05-13 09:48] LABS: ALBUMIN 4.2 GM/DL (3.2-5.2); ALT/SGPT 27 U/L (12-78); BILIRUBIN,TOTAL 0.6 MG/DL (0.2-1.0); BLOOD UREA NITROGEN 12 MG/DL (7-18); CARBON DIOXIDE LEVEL 31 MEQ/L (21-32); CHLORIDE LEVEL 106 MEQ/L (98-107); CHOLESTEROL LEVEL 179 MG/DL (<200); CREATININE FOR GFR 0.99 MG/DL (0.70-1.30); FREE T4 1.04 NG/DL (0.76-1.46); GLOMERULAR FILTRATION RATE > 60.0 (>60); GLUCOSE, FASTING 95 MG/DL (70-100); HDL CHOLESTEROL 38 MG/DL (>40); LDL CHOLESTEROL 123 MG/DL (<100); NON-HDL-C 141 MG/DL; POTASSIUM SERUM 4.5 MEQ/L (3.5-5.1); SODIUM LEVEL 140 MEQ/L (136-145); THYROID STIMULATING HORMONE 0.624 uIU/ML (0.358-3.740); TOTAL PROTEIN 7.5 GM/DL (6.4-8.2); TRIGLYCERIDES LEVEL 91 MG/DL (<150)
== END ==
LOC: M LAB 08:41
PROVIDERS: ATTEND Physician Assistant
DX: E78.00 Pure hypercholesterolemia, unspecified (principal)

== ENCOUNTER → 2020-02-16 | Outpatient (CLI) | payer SELFPAY | LOC: M LABSMTC 13:26 | PROVIDERS: ATTEND Pediatrics | DX: Z20.828 Contact with and (suspected) exposure to other viral communicable diseases (principal) ==

== ENCOUNTER → 2024-10-04 | Outpatient (CLI) | payer BC ==
[~2024-10-04] MED LIST changes: +IMIP25TA13 PO; -IMIP25TA3 PO; -ROPI0.5T3 PO; +ROPI0.5T33 PO; -ROSU40TA4 PO; +ROSU40TA81 PO
[2024-10-04 07:14] LABS: BASO # 0.1 10^3/uL (0.0-0.2); BASO % 1.0 % (0.0-1.0); EOS # 0.1 10^3/uL (0.0-0.5); EOS % 1.0 % (0.0-3.0); LYMPH # 1.6 10^3/uL (1.5-5.0); LYMPH % 31.9 % (24.0-44.0); MONO # 0.5 10^3/uL (0.0-0.8); MONO % 10.4 % (2.0-8.0); NEUTROPHILS # 2.8 10^3/uL (1.5-8.5); NEUTROPHILS % 55.5 % (36.0-66.0); PLATELET COUNT, AUTOMATED 195 10^3/uL (150-450)
[2024-10-04 07:46] LABS: ALT/SGPT 20 U/L (7.0-40); AST/SGOT 20 U/L (<34); CALCIUM LEVEL 9.2 MG/DL (8.5-10.1); CARBON DIOXIDE LEVEL 28 MMOL/L (20-31); CHLORIDE LEVEL 102 MMOL/L (98-107); CHOLESTEROL LEVEL 262 MG/DL (<200); CHOLESTEROL RISK RATIO 7.27 (<5); CREATININE FOR GFR 1.04 MG/DL (0.70-1.30); GLOMERULAR FILTRATION RATE > 90.0 (>60); LDL CHOLESTEROL 192.8 MG/DL (<100); NON-HDL-C 226.0 MG/DL; POTASSIUM SERUM 4.0 MMOL/L (3.5-5.1); SODIUM LEVEL 141 MMOL/L (136-145); TRIGLYCERIDES LEVEL 166 MG/DL (<150)
[2024-10-04 07:48] LABS: FREE T4 1.36 NG/DL (0.89-1.76)
== END ==
LOC: M LAB 06:31
PROVIDERS: ATTEND Family Medicine
DX: E78.00 Pure hypercholesterolemia, unspecified (principal)

== ENCOUNTER → 2024-10-06 | Outpatient (REF) | payer BC | LOC: M LAB REF 16:49 | PROVIDERS: ATTEND Family Medicine | DX: L03.011 Cellulitis of right finger (principal) ==

== ENCOUNTER → 2024-12-27 | Outpatient (CLI) | payer BC ==
[2024-12-27 10:02] LABS: ALT/SGPT 24.0 U/L (7.0-40); AST/SGOT 18.0 U/L (<34); CHOLESTEROL LEVEL 211.0 MG/DL (<200); CHOLESTEROL RISK RATIO 7.22 (<5); CPK CREATINE PHOSPHOKINASE 63.0 U/L (46-171); LDL CHOLESTEROL 127.6 MG/DL (<100); NON-HDL-C 181.8 MG/DL; TRIGLYCERIDES LEVEL 271.0 MG/DL (<150)
== END ==
LOC: M LAB 08:57
PROVIDERS: ATTEND Internal Medicine Cardiovascular Disease
DX: E78.2 Mixed hyperlipidemia (principal); R07.89 Other chest pain